=== PATIENT | female | born 1990 | race Caucasian/White ===

== ENCOUNTER 2017-07-03 15:24 | Emergency (ER) | payer OTHER ==
--- NOTE | 2017-07-03 16:39 | EDM.PDOC ---
ED HPI GENERAL MEDICAL PROBLEM - General Chief Complaint: ENT Problem Stated Complaint: DIZZY,HIGH BLOOD PRESSURE Time Seen by Provider: 07/03/17 15:36 Source of Information: Reports: Patient, RN Notes Reviewed - History of Present Illness INITIAL COMMENTS - FREE TEXT/NARRATIVE: 27 year old female with onset of palpatations about 3 days ago, usually felt L neck, intermitent, worse this AM, also very low energy, general achiness. Hx of borderline Htn with prior 5 yrs ago. Has not other schmid been recently ill. Slight Rodriguez last 3 days. no chest pain or difficulty breathing. Left Ear Pain Score (Numeric/FACES): 4 - Related Data Allergies Allergy/AdvReac Type Severity Reaction Status Date / Time No Known Allergies Allergy Verified 07/03/17 15:40 Home Meds: Home Meds . [No Known Home Meds] 07/03/17 [History] Past Medical History - Past Health History Medical/Surgical History: Denies Medical/Surgical History Social & Family History - Tobacco Use Smoking Status *Q: Never Smoker - Caffeine Use Caffeine Use: Reports: Coffee - Recreational Drug Use Recreational Drug Use: No ED ROS GENERAL - Review of Systems Review Of Systems: See Below Constitutional: Denies: Fever, Chills, Diaphoresis HEENT: Denies: Sinus Problem, Throat Pain Respiratory: Denies: Shortness of Breath, Wheezing, Pleuritic Chest Pain Cardiovascular: Reports: Palpitations. Denies: Chest Pain GI/Abdominal: Denies: Abdominal Pain, Nausea, Vomiting Musculoskeletal: Reports: No Symptoms Skin: Reports: No Symptoms Neurological: Denies: Numbness, Tingling ED EXAM, DIZZINESS - Physical Exam Exam: See Below General Appearance: Alert, No Apparent Distress Nose: Normal Inspection Throat/Mouth: Normal Inspection, Normal Oropharynx Head Exam: Atraumatic. No: Facial Swelling Neck: Supple, Full Range of Motion Respiratory/Chest: No Respiratory Distress, Lungs Clear, Normal Breath Sounds Cardiovascular: Regular Rate, Rhythm GI/Abdominal: Soft, Non-Tender Neurological: Alert, Normal Mood/Affect, No Motor/Sensory Deficits, Oriented x 3 Back Exam: Normal Inspection Extremities: Normal Inspection Skin Exam: Warm, Dry, Normal Color, No Rash Course - Vital Signs Last Recorded V/S: Last Vital Signs Temp 97 F 07/03/17 15:47 Pulse 92 07/03/17 15:47 Resp 16 07/03/17 15:47 BP 123/99 H 07/03/17 15:47 Pulse Ox 100 07/03/17 15:47 - Orders/Labs/Meds Labs: Laboratory Tests 07/03/17 07/03/17 Range/Units 16:15 16:15 WBC 8.65 (3.98-10.04) K/mm3 RBC 4.51 (3.98-5.22) M/mm3 Hgb 12.7 (11.2-15.7) gm/L Hct 38.5 (34.1-44.9) % MCV 85.4 (79.4-94.8) fl MCH 28.2 (25.6-32.2) pg MCHC 33.0 (32.2-35.5) g/dl RDW Std Deviation 45.9 (36.4-46.3) fL Plt Count 275 (182-369) K/mm3 MPV 10.4 (9.4-12.3) fl Neut % (Auto) 76.3 H (34.0-71.1) % Lymph % (Auto) 16.9 L (19.3-51.7) % Gray % (Auto) 6.2 (4.7-12.5) % Eos % (Auto) 0.2 L (0.7-5.8) Baso % (Auto) 0.2 (0.1-1.2) % Neut # (Auto) 6.59 H (1.56-6.13) K/mm3 Lymph # (Auto) 1.46 (1.18-3.74) K/mm3 Gray # (Auto) 0.54 H (0.24-0.36) K/mm3 Eos # (Auto) 0.02 L (0.04-0.36) K/mm3 Baso # (Auto) 0.02 (0.01-0.08) K/mm3 Sodium 141 (136-145) mEq/L Potassium 4.0 (3.5-5.1) mEq/L Chloride 105 (98-107) mEq/L Carbon Dioxide 25 (21-32) mEq/L Anion Gap 15.0 (5-15) BUN 10 (7-18) mg/dL Creatinine 0.7 (0.55-1.02) mg/dL Est Cr Clr Drug Dosing 106.09 mL/min Estimated GFR (MDRD) > 60 (>60) mL/min BUN/Creatinine Ratio 14.3 (14-18) Glucose 97 (74-106) mg/dL Calcium 9.0 (8.5-10.1) mg/dL Total Bilirubin 0.2 (0.2-1.0) mg/dL AST 22 (15-37) U/L ALT 22 (14-59) U/L Alkaline Phosphatase 60 (46-116) U/L Total Protein 7.8 (6.4-8.2) g/dl Albumin 4.1 (3.4-5.0) g/dl Globulin 3.7 gm/dL Albumin/Globulin Ratio 1.1 (1-2) TSH 3rd Generation 2.106 (0.358-3.74) uIU/mL - Re-Assessments/Exams Free Text/Narrative Re-Assessment/Exam: 07/07/17 10:47 labs including tsh were nl, sinus rythm, no ectopy. Departure - Departure Time of Disposition: 19:47 Disposition: Home, Self-Care 01 Condition: Fair Clinical Impression: Heart palpitations, Dizziness - Discharge Information Instructions: Palpitations, Dizziness Referrals: Ari Dias MD [Primary Care Provider] - Forms: ED Department Discharge Additional Instructions: 48 hour holter moniter, drink plenty of water to maintain hydration, low salt diet for now, check BP about 2 to 3 times daily, follow up with Dr Delacruz in about 4 to 5 days, call Wednesday morning for appt., bring BP readings in with you for that appt., return to ED as needed.
== END 2017-07-03 19:55 | disposition home or self-care (01) ==
LOC: JD.ED 15:24 → SUPCPDRO 15:24 → JD.ED 19:55
DX: R42 Dizziness and giddiness (principal); R00.2 Palpitations
CPT/HCPCS: 36415; 80053; 84443; 85025; 93225; 93226; 99283; 99284-25

== ENCOUNTER 2020-05-14 12:06 | Inpatient (IN) | payer OTHER ==
[2020-05-14] MEDS ORDERED: Sodium Chloride 0.9% 10 ML Syringe FLUSH PRN (12:28)
[2020-05-14] MEDS ORDERED: Oxytocin/Lactated Ringers 10 UNIT/1,000 ML BAG IV SCH (12:30)
[2020-05-14] MEDS ORDERED: ceFAZolin 2 GM in Premix Bag 1 BAG IV ONE (13:00)
[2020-05-14] MEDS ORDERED: Citric Acid/Sodium Citrate Solution 30 ML Cup PO ONE (13:00)
[2020-05-14] MEDS ORDERED: Metoclopramide 10 MG/2 ML SDV IVPUSH ONE (13:00)
[2020-05-14] MEDS: Lactated Ringers 1,000 ML IV SCH ×2 (13:05→14:09)
--- NOTE | 2020-05-14 13:21 | PCM.PREANE ---
Preanesthetic Assessment - Anesthesia/Transfusion/Family Hx Anesthesia History: Prior Anesthesia Without Reaction Transfusion History: No Prior Transfusion(s) - Review of Systems General: No Symptoms Pulmonary: No Symptoms Cardiovascular: No Symptoms Gastrointestinal: No Symptoms Neurological: No Symptoms, Trouble Speaking Other: Reports: None - Physical Assessment NPO Status Date: 05/14/20 NPO Status Time: 10:45 (CLQ) Vital Signs: 146/83, HR 97, RR 14, 99% Height: 1.63 m Weight: 100.244 kg ASA Class: 2 Mental Status: Alert & Oriented x3 Airway Class: Mallampati = 2 Dentition: Reports: Normal Dentition Thyro-Mental Finger Breadths: 3 Mouth Opening Finger Breadths: 3 ROM/Head Extension: Full Lungs: Clear to Auscultation, Normal Respiratory Effort Cardiovascular: Regular Rate, Regular Rhythm - Lab Values: Laboratory Last Values WBC 12.73 K/mm3 (3.98-10.04) H 05/14/20 13:00 RBC 4.16 M/mm3 (3.98-5.22) 05/14/20 13:00 Hgb 11.9 gm/dl (11.2-15.7) D 05/14/20 13:00 Hct 36.9 % (34.1-44.9) 05/14/20 13:00 MCV 88.7 fl (79.4-94.8) D 05/14/20 13:00 MCH 28.6 pg (25.6-32.2) 05/14/20 13:00 MCHC 32.2 g/dl (32.2-35.5) 05/14/20 13:00 RDW Std Deviation 45.5 fL (36.4-46.3) 05/14/20 13:00 Plt Count 242 K/mm3 (182-369) 05/14/20 13:00 MPV 10.1 fl (9.4-12.3) 05/14/20 13:00 Neut % (Auto) 72.1 % (34.0-71.1) H 05/14/20 13:00 Lymph % (Auto) 16.9 % (19.3-51.7) L 05/14/20 13:00 [place] % (Auto) 9.1 % (4.7-12.5) 05/14/20 13:00 Eos % (Auto) 0.4 (0.7-5.8) L 05/14/20 13:00 Baso % (Auto) 0.2 % (0.1-1.2) 05/14/20 13:00 Neut # (Auto) 9.18 K/mm3 (1.56-6.13) H 05/14/20 13:00 Lymph # (Auto) 2.15 K/mm3 (1.18-3.74) 05/14/20 13:00 [place] # (Auto) 1.16 K/mm3 (0.24-0.36) H 05/14/20 13:00 Eos # (Auto) 0.05 K/mm3 (0.04-0.36) 05/14/20 13:00 Baso # (Auto) 0.02 K/mm3 (0.01-0.08) 05/14/20 13:00 - Allergies Allergies/Adverse Reactions: Allergies Allergy/AdvReac Type Severity Reaction Status Date / Time No Known Allergies Allergy Verified 05/14/20 12:28 - Acknowledgements Anesthesia Type Planned: Spinal Pt an Appropriate Candidate for the Planned Anesthesia: Yes Alternatives and Risks of Anesthesia Discussed w Pt/Guardian: Yes Pt/Guardian Understands and Agrees with Anesthesia Plan: Yes PreAnesthesia Questionnaire - Past Health History Medical/Surgical History: Denies 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 [No Known Home Meds] 07/03/17 [History] - CURRENT (IN HOUSE) MEDS Current Meds: Current Medications Cefazolin Sodium/Dextrose 2 gm (/ Premix) 50 mls @ 100 mls/hr IV ONETIME ONE Stop: 05/14/20 13:29 Oxytocin/Lactated Ringer's (Pitocin In Lr 10 Units/1,000 Ml) 10 unit in 1,000 mls @ 100 mls/hr IV ASDIRECTED [facility] Lactated Ringer's (Ringers, Lactated) 1,000 mls @ 125 mls/hr IV ASDIRECTED [facility]ATH[facility] Last Admin: 05/14/20 13:05 Dose: 125 mls/hr Documented by: Sodium Chloride (Saline Flush) 10 ml FLUSH ASDIRECTED PRN PRN Reason: Keep Vein Open Discontinued Medications Citric Acid/Sodium Citrate (Bicitra Solution) 30 ml PO ONETIME ONE Stop: 05/14/20 13:01 Metoclopramide HCl (Reglan) 10 mg IVPUSH ONETIME ONE Stop: 05/14/20 13:01
[2020-05-14] MEDS ORDERED: Morphine PF 10 MG/10 ML SDV ONE (13:40)
[2020-05-14] MEDS ORDERED: fentaNYL 100 MCG/2 ML SDV ONE (13:40)
[2020-05-14] MEDS ORDERED: ceFAZolin 1 GM Vial ONE (13:44)
[2020-05-14] MEDS ORDERED: Oxytocin 10 Units/1 ML SDV ONE (13:44)
[2020-05-14] MEDS ORDERED: Bupivacaine 0.5% 30 ML SDV ONE (13:54)
[2020-05-14] MEDS ORDERED: ePHEDrine 50 MG/ML SDV ONE (14:35)
[2020-05-14] MEDS ORDERED: Lactated Ringers 1,000 ML ONE (14:36)
[2020-05-14] MEDS ORDERED: Ketorolac 30 MG/ML SDV ONE (15:06)
[2020-05-14] MEDS ORDERED: Ondansetron 4 MG/2 ML SDV IVPUSH PRN ×2 (15:18→19:05)
[2020-05-14] MEDS ORDERED: diphenhydrAMINE 50 MG/ML SDV IVPUSH PRN ×2 (15:18→16:36)
[2020-05-14] MEDS ORDERED: fentaNYL 100 MCG/2 ML SDV IVPUSH PRN (15:18)
--- NOTE | 2020-05-14 15:25 | PCM.POSTAN ---
POST ANESTHESIA ASSESSMENT - MENTAL STATUS Mental Status: Alert, Oriented - VITAL SIGNS Vital Signs: Last Vital Signs Temp 97.9 F 05/14/20 15:15 Pulse 89 05/14/20 15:15 Resp 18 05/14/20 15:15 BP 124/61 05/14/20 15:15 Pulse Ox 99 05/14/20 15:15 - RESPIRATORY Respiratory Status: Respiratory Rate WNL, Airway Patent, O2 Saturation Stable - CARDIOVASCULAR CV Status: Pulse Rate WNL, Blood Pressure Stable - GASTROINTESTINAL GI Status: No Symptoms - PAIN Pain Score: 0 (post SAB) - POST OP HYDRATION Hydration Status: Adequate & Stable
--- NOTE | 2020-05-14 15:25 | PCM.OPNOTE ---
- General Post-Op/Procedure Note Date of Surgery/Procedure: 05/14/20 Operative Procedure(s): Repeat section Findings: Viable female, weight 6#4oz, 8/10 APGARS at 1439. Vertex. Pre Op Diagnosis: pre-ecclampsia, history of abruption Post-Op Diagnosis: Same Anesthesia Technique: Spinal Primary Surgeon: Mary Braga Postal Inspector: Glory Tesfaye Fluid Replacement, Intraop: 2,000 Output, Urine Amount: 500 EBL in mLs: 650 Complications: None Condition: Good Free Text/Narrative:: The patient was taken to the operating room where spinal anesthesia was dosed to surgical levels without difficulty. The patient was prepped and draped in the usual sterile fashion in the dorsal supine position with a leftward tilt. A Pfannenstiel skin incision was made through prior incision 80s she is grunting and she is retracting good liter of medical air or she has not tried first with the scalpel and carried through to the underlying layer of fascia. The fascia was incised in the midline and extended laterally using Olivera scissors. Christian clamps were used to elevate the superior aspect of the fascial incision, which was elevated, and the underlying rectus muscles were dissected off bluntly and using Olivera scissors. Attention was then turned to the inferior aspect of the fascial incision, which in similar fashion was grasped with Christian clamps, elevated, and the underlying rectus muscles were dissected off bluntly and using the olivera. The rectus muscles were dissected in the midline. The peritoneum was entered bluntly; this incision was extended superiorly and inferiorly with good visualization of the bladder. The bladder blade was inserted. The vesicouterine peritoneum was identified and entered sharply using Metzenbaum scissors. This incision was extended laterally and the bladder flap was created digitally. The bladder blade was reinserted. The lower uterine segment was incised in a transverse fashion using the scalpel and with digital traction. Clear fluid was noted. The was subsequently delivered by flexing the head to the incision. Body and shoulders followed without difficulty. The cord was clamped and cut. The was subsequently handed to the awaiting pleating supervisor whose presence had been requested.. The placenta was delivered spontaneously intact with a three-vessel cord noted. The uterus was exteriorized and cleared of all clots and debris. The uterine incision was repaired in 2 layers using 0 monocryl. Hemostasis was visualized. Hemostasis was visualized bilaterally. The uterus was returned to the abdomen. Additional figure of 8 sutures at left aspect to obtain hemostais. Flow seal utilized.The uterine incision was reexamined and it was noted to be hemostatic. The pelvis was copiously irrigated. The fascia was closed with 1 PDS suture, and the skin was closed with 3-0 monocryl. Sponge, lap, and instrument counts were correct x2. The patient was stable at the completion of the procedure and was subsequently transferred to the recovery room in stable condition.
[2020-05-14] MEDS ORDERED: ePHEDrine 50 MG/ML SDV IVPUSH PRN (16:36)
[2020-05-14] MEDS ORDERED: Naloxone 0.4 MG/ML SDV IVPUSH PRN (16:36)
[2020-05-14] MEDS ORDERED: Dextrose 5%-Lactated Ringers 1,000 ML IV SCH (16:36)
[2020-05-14] MEDS: Acetaminophen/oxyCODONE 325-5 MG Tab PO PRN (23:13)
[2020-05-15] MEDS: Acetaminophen/oxyCODONE 325-5 MG Tab PO PRN ×3 (05:18→18:08)
--- NOTE | 2020-05-15 07:21 | PCM48HPAN ---
Post Anesthesia Note - EVALUATION WITHIN 48HRS OF ANESTHETIC Vital Signs in Normal Range: Yes Patient Participated in Evaluation: Yes Respiratory Function Stable: Yes Airway Patent: Yes Cardiovascular Function Stable: Yes Hydration Status Stable: Yes Pain Control Satisfactory: Yes Nausea and Vomiting Control Satisfactory: Yes Mental Status Recovered: Yes Vital Signs: Last Vital Signs Temp 36.9 C 05/15/20 05:15 Pulse 85 05/15/20 05:15 Resp 14 05/15/20 06:06 BP 124/72 05/15/20 05:15 Pulse Ox 99 05/15/20 06:06
[2020-05-15] MEDS: Ibuprofen 600 MG Tab PO PRN ×2 (14:32→21:39)
[2020-05-15] MEDS ORDERED: Labetalol 100 MG Tab PO ONE (19:59)
[2020-05-16] MEDS: Acetaminophen/oxyCODONE 325-5 MG Tab PO PRN ×5 (00:50→21:35)
--- NOTE | 2020-05-16 07:51 | PCM.PNPP ---
- General Info Date of Service: 05/15/20 Functional Status: Reports: Pain Controlled - Review of Systems General: Reports: No Symptoms HEENT: Reports: No Symptoms Pulmonary: Reports: No Symptoms Cardiovascular: Reports: No Symptoms Gastrointestinal: Reports: No Symptoms Genitourinary: Reports: No Symptoms Musculoskeletal: Reports: No Symptoms Skin: Reports: No Symptoms Neurological: Reports: No Symptoms Psychiatric: Reports: No Symptoms - General Info Date of Service: 05/15/20 - Patient Data Vital Signs - Most Recent: Last Vital Signs Temp 36.3 C 05/16/20 03:40 Pulse 70 05/16/20 03:40 Resp 16 05/16/20 03:40 BP 134/90 05/16/20 03:40 Pulse Ox 99 05/16/20 03:40 Weight - Most Recent: 100.244 kg I&O - Last 24 Hours: Intake & Output 05/15/20 05/16/20 05/16/20 22:59 06:59 14:59 Intake Total 640 Output Total 600 Balance 40 Lab Results - Last 24 Hours: Laboratory Results - last 24 hr 05/14/20 Range/Units 12:45 Group B Strep (PCR) Negative (NEGATIVE) Med Orders - Current: Current Medications Diphenhydramine HCl (Benadryl) 25 mg IVPUSH Q6H PRN PRN Reason: Itching or Nausea Ephedrine Sulfate (Ephedrine Sulfate) 5 mg IVPUSH SEECOMMENT PRN PRN Reason: Other Ibuprofen (Motrin) 600 mg PO Q6H PRN PRN Reason: mild pain or fever Last Admin: 05/15/20 21:39 Dose: 600 mg Documented by: Naloxone HCl (Narcan) 0.1 mg IVPUSH SEECOMMENT PRN PRN Reason: Respiratory Depression Ondansetron HCl (Zofran) 4 mg IVPUSH Q4H PRN PRN Reason: Nausea/Vomiting Oxycodone/Acetaminophen (Percocet 325-5 Mg) 1 tab PO Q4H PRN PRN Reason: Pain (moderate 4-6) Last Admin: 05/16/20 05:06 Dose: 1 tab Documented by: Oxycodone/Acetaminophen (Percocet 325-5 Mg) 2 tab PO Q4H PRN PRN Reason: Pain (severe 7-10) Last Admin: 05/15/20 18:08 Dose: 2 tab Documented by: Discontinued Medications Bupivacaine HCl (Marcaine 0.5%) Confirm Administered Dose 30 ml .ROUTE .[facility] ONE Stop: 05/14/20 13:55 Last Admin: 05/14/20 14:37 Dose: 20 ml Documented by: Cefazolin Sodium (Ancef) Confirm Administered Dose 2 gm .ROUTE .[facility] ONE Stop: 05/14/20 13:45 Citric Acid/Sodium Citrate (Bicitra Solution) 30 ml PO ONETIME ONE Stop: 05/14/20 13:01 Last Admin: 05/14/20 14:09 Dose: 30 ml Documented by: Diphenhydramine HCl (Benadryl) 25 mg IVPUSH Q6H PRN PRN Reason: Pruritis Ephedrine Sulfate (Ephedrine Sulfate) Confirm Administered Dose 50 mg .ROUTE .[facility] ONE Stop: 05/14/20 14:36 Fentanyl (Sublimaze) Confirm Administered Dose 100 mcg .ROUTE .[facility] ONE Stop: 05/14/20 13:41 Fentanyl (Sublimaze) 50 mcg IVPUSH Q5M PRN PRN Reason: Pain Cefazolin Sodium/Dextrose 2 gm (/ Premix) 50 mls @ 100 mls/hr IV ONETIME ONE Stop: 05/14/20 13:29 Last Admin: 05/14/20 17:51 Dose: Not Given Documented by: Oxytocin/Lactated Ringer's (Pitocin In Lr 10 Units/1,000 Ml) 10 unit in 1,000 mls @ 100 mls/hr IV ASDIRECTED [facility] Lactated Ringer's (Ringers, Lactated) 1,000 mls @ 125 mls/hr IV ASDIRECTED [facility] Last Admin: 05/14/20 14:09 Dose: 125 mls/hr Documented by: Lactated Ringer's (Ringers, Lactated) Confirm Administered Dose 1,000 mls @ as directed .ROUTE .[facility] ONE Stop: 05/14/20 14:37 Dextrose/Lactated Ringer's (Dextrose 5%-Lactated Ringers) 1,000 mls @ 125 mls/hr IV ASDIRECTED [facility] Stop: 05/15/20 00:35 Last Admin: 05/14/20 23:15 Dose: 125 mls/hr Documented by: Ketorolac Tromethamine (Toradol) Confirm Administered Dose 30 mg .ROUTE .[facility] ONE Stop: 05/14/20 15:07 Labetalol HCl (Normodyne) 100 mg PO ONETIME ONE Stop: 05/15/20 20:00 Last Admin: 05/15/20 20:19 Dose: 100 mg Documented by: Metoclopramide HCl (Reglan) 10 mg IVPUSH ONETIME ONE Stop: 05/14/20 13:01 Last Admin: 05/14/20 14:09 Dose: 10 mg Documented by: Miscellaneous Medication (Phenylephrine 1 Mg/10 Ml-Ns) Confirm Administered Dose 1 mg .ROUTE .[facility] ONE Stop: 05/14/20 14:36 Morphine Sulfate (Duramorph Pf) Confirm Administered Dose 10 mg .ROUTE .[facility] ONE Stop: 05/14/20 13:41 Ondansetron HCl (Zofran) 4 mg IVPUSH ONETIME PRN PRN Reason: Nausea/Vomiting Oxytocin (Pitocin) Confirm Administered Dose 20 unit .ROUTE .[facility] ONE Stop: 05/14/20 13:45 Sodium Chloride (Saline Flush) 10 ml FLUSH ASDIRECTED PRN PRN Reason: Keep Vein Open - Interaction Disposition, : at Bedside (out of level 2 as of about 2 am) Support Person: - Recovery Exam Fundal Tone: Firm Fundal Level: 1 Fingerbreadths Below Umbilicus Fundal Placement: Midline Lochia Amount: Small Lochia Color: Rubra/Red Perineum Description: Intact, Minimal Bruising/Swelling Episiotomy/Laceration: None Bladder Status: Voiding Urinary Elimination: Voided - Exam General: Alert, Oriented HEENT: Pupils Equal Neck: Supple Lungs: Clear to Auscultation, Normal Respiratory Effort Cardiovascular: Regular Rate, Regular Rhythm GI/Abdominal Exam: Normal Bowel Sounds, Soft, Non-Tender, No Organomegaly, No Distention, No Abnormal Bruit, No Mass, Pelvis Stable Extremities: Normal Inspection, Normal Range of Motion, Non-Tender, No Pedal Edema, Normal Capillary Refill Neurological: No New Focal Deficit Psy/Mental Status: Alert, Normal Affect, Normal Mood - Problem List Review Problem List Initiated/Reviewed/Updated: Yes - Assessment Assessment:: Doing well POD1 from c/s
--- NOTE | 2020-05-16 07:54 | PCM.PNPP ---
- General Info Date of Service: 05/16/20 Functional Status: Reports: Pain Controlled - Review of Systems General: Reports: No Symptoms HEENT: Reports: No Symptoms Pulmonary: Reports: No Symptoms Cardiovascular: Reports: No Symptoms Gastrointestinal: Reports: No Symptoms Genitourinary: Reports: No Symptoms Musculoskeletal: Reports: No Symptoms Skin: Reports: No Symptoms Neurological: Reports: No Symptoms Psychiatric: Reports: No Symptoms - General Info Date of Service: 05/16/20 - Patient Data Vital Signs - Most Recent: Last Vital Signs Temp 36.3 C 05/16/20 03:40 Pulse 70 05/16/20 03:40 Resp 16 05/16/20 03:40 BP 134/90 05/16/20 03:40 Pulse Ox 99 05/16/20 03:40 Weight - Most Recent: 100.244 kg I&O - Last 24 Hours: Intake & Output 05/15/20 05/16/20 05/16/20 22:59 06:59 14:59 Intake Total 640 Output Total 600 Balance 40 Lab Results - Last 24 Hours: Laboratory Results - last 24 hr 05/14/20 Range/Units 12:45 Group B Strep (PCR) Negative (NEGATIVE) Med Orders - Current: Current Medications Diphenhydramine HCl (Benadryl) 25 mg IVPUSH Q6H PRN PRN Reason: Itching or Nausea Ephedrine Sulfate (Ephedrine Sulfate) 5 mg IVPUSH SEECOMMENT PRN PRN Reason: Other Ibuprofen (Motrin) 600 mg PO Q6H PRN PRN Reason: mild pain or fever Last Admin: 05/15/20 21:39 Dose: 600 mg Documented by: Naloxone HCl (Narcan) 0.1 mg IVPUSH SEECOMMENT PRN PRN Reason: Respiratory Depression Ondansetron HCl (Zofran) 4 mg IVPUSH Q4H PRN PRN Reason: Nausea/Vomiting Oxycodone/Acetaminophen (Percocet 325-5 Mg) 1 tab PO Q4H PRN PRN Reason: Pain (moderate 4-6) Last Admin: 05/16/20 05:06 Dose: 1 tab Documented by: Oxycodone/Acetaminophen (Percocet 325-5 Mg) 2 tab PO Q4H PRN PRN Reason: Pain (severe 7-10) Last Admin: 05/15/20 18:08 Dose: 2 tab Documented by: Discontinued Medications Bupivacaine HCl (Marcaine 0.5%) Confirm Administered Dose 30 ml .ROUTE .[facility] ONE Stop: 05/14/20 13:55 Last Admin: 05/14/20 14:37 Dose: 20 ml Documented by: Cefazolin Sodium (Ancef) Confirm Administered Dose 2 gm .ROUTE .[facility] ONE Stop: 05/14/20 13:45 Citric Acid/Sodium Citrate (Bicitra Solution) 30 ml PO ONETIME ONE Stop: 05/14/20 13:01 Last Admin: 05/14/20 14:09 Dose: 30 ml Documented by: Diphenhydramine HCl (Benadryl) 25 mg IVPUSH Q6H PRN PRN Reason: Pruritis Ephedrine Sulfate (Ephedrine Sulfate) Confirm Administered Dose 50 mg .ROUTE .[facility] ONE Stop: 05/14/20 14:36 Fentanyl (Sublimaze) Confirm Administered Dose 100 mcg .ROUTE .[facility] ONE Stop: 05/14/20 13:41 Fentanyl (Sublimaze) 50 mcg IVPUSH Q5M PRN PRN Reason: Pain Cefazolin Sodium/Dextrose 2 gm (/ Premix) 50 mls @ 100 mls/hr IV ONETIME ONE Stop: 05/14/20 13:29 Last Admin: 05/14/20 17:51 Dose: Not Given Documented by: Oxytocin/Lactated Ringer's (Pitocin In Lr 10 Units/1,000 Ml) 10 unit in 1,000 mls @ 100 mls/hr IV ASDIRECTED [facility] Lactated Ringer's (Ringers, Lactated) 1,000 mls @ 125 mls/hr IV ASDIRECTED [facility] Last Admin: 05/14/20 14:09 Dose: 125 mls/hr Documented by: Lactated Ringer's (Ringers, Lactated) Confirm Administered Dose 1,000 mls @ as directed .ROUTE .[facility] ONE Stop: 05/14/20 14:37 Dextrose/Lactated Ringer's (Dextrose 5%-Lactated Ringers) 1,000 mls @ 125 mls/hr IV ASDIRECTED [facility] Stop: 05/15/20 00:35 Last Admin: 05/14/20 23:15 Dose: 125 mls/hr Documented by: Ketorolac Tromethamine (Toradol) Confirm Administered Dose 30 mg .ROUTE .[facility] ONE Stop: 05/14/20 15:07 Labetalol HCl (Normodyne) 100 mg PO ONETIME ONE Stop: 05/15/20 20:00 Last Admin: 05/15/20 20:19 Dose: 100 mg Documented by: Metoclopramide HCl (Reglan) 10 mg IVPUSH ONETIME ONE Stop: 05/14/20 13:01 Last Admin: 05/14/20 14:09 Dose: 10 mg Documented by: Miscellaneous Medication (Phenylephrine 1 Mg/10 Ml-Ns) Confirm Administered Dose 1 mg .ROUTE .[facility] ONE Stop: 05/14/20 14:36 Morphine Sulfate (Duramorph Pf) Confirm Administered Dose 10 mg .ROUTE .[facility] ONE Stop: 05/14/20 13:41 Ondansetron HCl (Zofran) 4 mg IVPUSH ONETIME PRN PRN Reason: Nausea/Vomiting Oxytocin (Pitocin) Confirm Administered Dose 20 unit .ROUTE .[facility] ONE Stop: 05/14/20 13:45 Sodium Chloride (Saline Flush) 10 ml FLUSH ASDIRECTED PRN PRN Reason: Keep Vein Open - Interaction Disposition, : at Bedside (out of level 2 as of about 2 am) Support Person: - Recovery Exam Fundal Tone: Firm Fundal Level: 1 Fingerbreadths Below Umbilicus Fundal Placement: Midline Lochia Amount: Small Lochia Color: Rubra/Red Perineum Description: Intact, Minimal Bruising/Swelling Episiotomy/Laceration: None Bladder Status: Voiding Urinary Elimination: Voided - Exam General: Alert, Oriented HEENT: Pupils Equal Neck: Supple Lungs: Clear to Auscultation, Normal Respiratory Effort Cardiovascular: Regular Rate, Regular Rhythm GI/Abdominal Exam: Normal Bowel Sounds, Soft, Non-Tender, No Organomegaly, No Distention, No Abnormal Bruit, No Mass, Pelvis Stable Extremities: Normal Inspection, Normal Range of Motion, Non-Tender, No Pedal Edema, Normal Capillary Refill Neurological: No New Focal Deficit Psy/Mental Status: Alert, Normal Affect, Normal Mood - Problem List Review Problem List Initiated/Reviewed/Updated: Yes - Assessment Assessment:: Doing well POD2 from c/s
[2020-05-16] MEDS: Ibuprofen 600 MG Tab PO PRN (08:29)
[2020-05-16] MEDS: Simethicone 80 MG Tab.Chew PO ONE (21:56)
[2020-05-17] MEDS: Ibuprofen 600 MG Tab PO PRN (01:20)
[2020-05-17] MEDS: Acetaminophen/oxyCODONE 325-5 MG Tab PO PRN (02:00)
[2020-05-17] MEDS ORDERED: Simethicone 80 MG Tab.Chew PO SCH (07:00)
[2020-05-17] MEDS: Simethicone 80 MG Tab.Chew PO ONE (07:39)
--- NOTE | 2020-05-17 08:10 | PCM.DCSUM1 ---
Discharge Summary - Hospital Course Brief History: Admitted for severe range blood pressures and repeat . Postop day 3 slightly worsening diastolics so discharged on medicaiton with close interval followup. Diagnosis: Stroke: No - Discharge Data Discharge Date: 05/17/20 Discharge Disposition: Home, Self-Care 01 Condition: Good - Referral to Home Health Primary Care Physician: PCP None - Patient Summary/Data Operative Procedure(s) Performed: Repeat section - Patient Instructions Diet: Usual Diet as Tolerated Activity: No Strenuous Activities Activity, Other: pelvic rest Driving: Do Not Drive Notify Provider of: Fever - Discharge Plan *PRESCRIPTION DRUG MONITORING PROGRAM REVIEWED*: No *COPY OF PRESCRIPTION DRUG MONITORING REPORT IN PATIENT NADER: No Home Medications: Home Meds Aspirin 1 tab PO DAILY 05/14/20 [History] Pnv No.95/Ferrous Fum/Folic AC [ Tablet] 1 tab PO DAILY 05/14/20 [History] Patient Handouts: and Inducing , Hypertension, Care After Vaginal Delivery Referrals: Mary Braga MD [Physician] - (WednesdayMay 21) - Discharge Summary/Plan Comment DC Time >30 min.: No - General Info Date of Service: 05/17/20 Functional Status: Reports: Pain Controlled - Review of Systems General: Reports: No Symptoms HEENT: Reports: No Symptoms Pulmonary: Reports: No Symptoms Cardiovascular: Reports: No Symptoms Gastrointestinal: Reports: No Symptoms Genitourinary: Reports: No Symptoms Musculoskeletal: Reports: No Symptoms Skin: Reports: No Symptoms Neurological: Reports: No Symptoms Psychiatric: Reports: No Symptoms - Patient Data Vitals - Most Recent: Last Vital Signs Temp 36.4 C 05/17/20 07:16 Pulse 69 05/17/20 07:16 Resp 18 05/17/20 07:16 BP 158/100 H 05/17/20 07:36 Pulse Ox 100 05/17/20 07:16 Weight - Most Recent: 100.244 kg I&O - Last 24 hours: Intake & Output 05/16/20 05/17/20 05/17/20 22:59 06:59 14:59 Intake Total 320 Balance 320 Med Orders - Current: Current Medications Diphenhydramine HCl (Benadryl) 25 mg IVPUSH Q6H PRN PRN Reason: Itching or Nausea Ephedrine Sulfate (Ephedrine Sulfate) 5 mg IVPUSH SEECOMMENT PRN PRN Reason: Other Ibuprofen (Motrin) 600 mg PO Q6H PRN PRN Reason: mild pain or fever Last Admin: 05/17/20 01:20 Dose: 600 mg Documented by: Naloxone HCl (Narcan) 0.1 mg IVPUSH SEECOMMENT PRN PRN Reason: Respiratory Depression Ondansetron HCl (Zofran) 4 mg IVPUSH Q4H PRN PRN Reason: Nausea/Vomiting Oxycodone/Acetaminophen (Percocet 325-5 Mg) 1 tab PO Q4H PRN PRN Reason: Pain (moderate 4-6) Last Admin: 05/16/20 05:06 Dose: 1 tab Documented by: Oxycodone/Acetaminophen (Percocet 325-5 Mg) 2 tab PO Q4H PRN PRN Reason: Pain (severe 7-10) Last Admin: 05/17/20 02:00 Dose: 2 tab Documented by: Simethicone (Simethicone) 80 mg PO TIDAC KATHY Discontinued Medications Bupivacaine HCl (Marcaine 0.5%) Confirm Administered Dose 30 ml .ROUTE .STK-MED ONE Stop: 05/14/20 13:55 Last Admin: 05/14/20 14:37 Dose: 20 ml Documented by: Cefazolin Sodium (Ancef) Confirm Administered Dose 2 gm .ROUTE .STK-MED ONE Stop: 05/14/20 13:45 Citric Acid/Sodium Citrate (Bicitra Solution) 30 ml PO ONETIME ONE Stop: 05/14/20 13:01 Last Admin: 05/14/20 14:09 Dose: 30 ml Documented by: Diphenhydramine HCl (Benadryl) 25 mg IVPUSH Q6H PRN PRN Reason: Pruritis Ephedrine Sulfate (Ephedrine Sulfate) Confirm Administered Dose 50 mg .ROUTE .STK-MED ONE Stop: 05/14/20 14:36 Fentanyl (Sublimaze) Confirm Administered Dose 100 mcg .ROUTE .STK-MED ONE Stop: 05/14/20 13:41 Fentanyl (Sublimaze) 50 mcg IVPUSH Q5M PRN PRN Reason: Pain Cefazolin Sodium/Dextrose 2 gm (/ Premix) 50 mls @ 100 mls/hr IV ONETIME ONE Stop: 05/14/20 13:29 Last Admin: 05/14/20 17:51 Dose: Not Given Documented by: Oxytocin/Lactated Ringer's (Pitocin In Lr 10 Units/1,000 Ml) 10 unit in 1,000 mls @ 100 mls/hr IV ASDIRECTED [facility] [place] Lactated Ringer's (Ringers, Lactated) 1,000 mls @ 125 mls/hr IV ASDIRECTED [facility] [place] Last Admin: 05/14/20 14:09 Dose: 125 mls/hr Documented by: Lactated Ringer's (Ringers, Lactated) Confirm Administered Dose 1,000 mls @ as directed .ROUTE .STK-MED ONE Stop: 05/14/20 14:37 Dextrose/Lactated Ringer's (Dextrose 5%-Lactated Ringers) 1,000 mls @ 125 mls/hr IV ASDIRECTED [facility] [place] Stop: 05/15/20 00:35 Last Admin: 05/14/20 23:15 Dose: 125 mls/hr Documented by: Ketorolac Tromethamine (Toradol) Confirm Administered Dose 30 mg .ROUTE .STK-MED ONE Stop: 05/14/20 15:07 Labetalol HCl (Normodyne) 100 mg PO ONETIME ONE Stop: 05/15/20 20:00 Last Admin: 05/15/20 20:19 Dose: 100 mg Documented by: Metoclopramide HCl (Reglan) 10 mg IVPUSH ONETIME ONE Stop: 05/14/20 13:01 Last Admin: 05/14/20 14:09 Dose: 10 mg Documented by: Miscellaneous Medication (Phenylephrine 1 Mg/10 Ml-Ns) Confirm Administered Dose 1 mg .ROUTE .STK-MED ONE Stop: 05/14/20 14:36 Morphine Sulfate (Duramorph Pf) Confirm Administered Dose 10 mg .ROUTE .STK-MED ONE Stop: 05/14/20 13:41 Ondansetron HCl (Zofran) 4 mg IVPUSH ONETIME PRN PRN Reason: Nausea/Vomiting Oxytocin (Pitocin) Confirm Administered Dose 20 unit .ROUTE .STK-MED ONE Stop: 05/14/20 13:45 Simethicone (Simethicone) 80 mg PO ONETIME ONE Stop: 05/16/20 21:38 Last Admin: 05/17/20 07:39 Dose: 80 mg Documented by: Sodium Chloride (Saline Flush) 10 ml FLUSH ASDIRECTED PRN PRN Reason: Keep Vein Open - Exam General: Reports: Alert, Oriented HEENT: Reports: Pupils Equal, Pupils Reactive, EOMI, Mucous Membr. Moist/[place] Neck: Reports: Supple Lungs: Reports: Clear to Auscultation, Normal Respiratory Effort Cardiovascular: Reports: Regular Rate, Regular Rhythm GI/Abdominal Exam: Normal Bowel Sounds, Soft, Non-Tender, No Organomegaly, No Distention, No Abnormal Bruit, No Mass, Pelvis Stable Rectal (Female) Exam: Normal Exam, Normal Rectal Tone Back Exam: Reports: Normal Inspection, Full Range of Motion Extremities: Normal Inspection, Normal Range of Motion, Non-Tender, No Pedal Edema, Normal Capillary Refill Neurological: Reports: No New Focal Deficit Psy/Mental Status: Reports: Alert, Normal Affect, Normal Mood
== END 2020-05-17 10:20 | disposition home or self-care (01) | DRG 788 ==
LOC: JD.OBCHECK 12:06 → JD.OB 12:07
PROVIDERS: ADMIT Obstetrics & Gynecology; ATTEND Obstetrics & Gynecology
PROC: 10D00Z1 Extraction of Products of Conception, Low, Open Approach (ICD-10-PCS; principal; 2020-05-14)
DX: O14.94 Unspecified pre-eclampsia, complicating childbirth (principal); Z37.0 Single live birth; Z20.822 Contact with and (suspected) exposure to COVID-19; O34.211 Maternal care for low transverse scar from previous cesarean delivery
CPT/HCPCS: 01961; 36415; 59025; 82565; 82570; 83615; 84156; 84450; 84460; 84520; 84550; 85025; 86592; 86850; 86900; 86901; 87653; A9270-GY; J0690; J1885; J2270; J2370; J2590; J2765; J3010; J3490; J7120; J7121; U0002